=== PATIENT | female | born 1955 | race Caucasian/White ===

== ENCOUNTER 2018-03-25 12:04 | Day surgery (SDC) | payer MEDICAID ==
[~2018-03-25 12:04] MED LIST: Lactated Ringers 1,000 ML IV SCH
[2018-03-25] MEDS ORDERED: Midazolam 1 MG/ML 2 ML SDV ONE (12:24)
[2018-03-25] MEDS ORDERED: fentaNYL 100 MCG/2 ML SDV ONE (12:24)
[2018-03-25] MEDS ORDERED: Lidocaine 2% 5 ML SDV ONE (12:24)
[2018-03-25] MEDS ORDERED: Propofol 200 MG/20 ML SDV ONE ×2 (12:24→12:26)
--- NOTE | 2018-03-25 13:00 | PCM.PREANE ---
Preanesthetic Assessment - Anesthesia/Transfusion/Family Hx Anesthesia History: Prior Anesthesia Reaction (had colonoscopy with demerol versed, was not adequately sedated, sat up during procedure, felt pain) Family History of Anesthesia Reaction: No Transfusion History: No Prior Transfusion(s) - Review of Systems General: No Symptoms Pulmonary: No Symptoms Cardiovascular: No Symptoms Neurological: No Symptoms Other: Reports: None - Physical Assessment NPO Status Date: 03/24/18 O2 Sat by Pulse Oximetry: 97 Respiratory Rate: 16 Vital Signs: Last Vital Signs Temp 36.1 C 03/25/18 12:27 Pulse 62 03/25/18 12:27 Resp 16 03/25/18 12:27 BP 162/72 H 03/25/18 12:27 Pulse Ox 97 03/25/18 12:27 Height: 1.65 m Weight: 61.689 kg ASA Class: 2 Mental Status: Alert & Oriented x3 Airway Class: Mallampati = 2 Dentition: Reports: Normal Dentition ROM/Head Extension: Full Lungs: Clear to Auscultation, Normal Respiratory Effort Cardiovascular: Regular Rate, Regular Rhythm - Allergies Allergies/Adverse Reactions: Allergies Allergy/AdvReac Type Severity Reaction Status Date / Time acetaminophen [From Percocet] Allergy Cannot Verified 03/23/18 12:30 Remember codeine Allergy Cannot Verified 03/23/18 12:30 Remember hydrocodone [From Vicodin] Allergy Cannot Verified 03/23/18 12:30 Remember oxycodone [From Percocet] Allergy Cannot Verified 03/23/18 12:30 Remember - Anesthesia Plan Pre-Op Medication Ordered: None - Acknowledgements Anesthesia Type Planned: MAC Pt an Appropriate Candidate for the Planned Anesthesia: Yes Alternatives and Risks of Anesthesia Discussed w Pt/Guardian: Yes Pt/Guardian Understands and Agrees with Anesthesia Plan: Yes Additional Comments: PMH: IBS, HLD, migraine, PUD, smoker, glaucoma PreAnesthesia Questionnaire HEENT History: Reports: Allergic Rhinitis, Glaucoma Other HEENT History: uses readiong glasses Cardiovascular History: Reports: High Cholesterol Gastrointestinal History: Reports: Hiatal Hernia, Irritable Bowel Syndrome, PUD Other Gastrointestinal History: had peptic ulcers at age 4 VP COMMUNICATIONS History: Reports: Musculoskeletal History: Reports: Arthritis Other Musculoskeletal History: hx of fx right fibula, ankle and foot Neurological History: Reports: Migraines Psychiatric History: Reports: Anxiety, Panic Attack - Past Surgical History HEENT Surgical History: Reports: Adenoidectomy, Tonsillectomy GI Surgical History: Reports: Cholecystectomy, Colonoscopy, EGD Female Surgical History: Reports: Breast Biopsy, Hysterectomy, Tubal Ligation - SUBSTANCE USE Smoking Status *Q: Current Every Day Smoker Tobacco Use Within Last Twelve Months: Cigarettes Recreational Drug Use History: No - HOME MEDS Home Medications: Home Meds ALPRAZolam [Alprazolam] 0.25 mg PO TID MDD 1 mg 03/23/18 [History] Acyclovir [Zovirax] 400 mg PO DAILY 03/23/18 [History] Bromfenac Sodium [Bromsite] 1 drop EYEBOTH DAILY PRN 03/23/18 [History] Estradiol 1 mg PO DAILY 03/23/18 [History] Pravastatin [Pravachol] 40 mg PO DAILY 03/23/18 [History] Travoprost [Travatan Z 0.004% Ophth Soln] 1 drop EYEBOTH BEDTIME 03/23/18 [ History] - CURRENT (IN HOUSE) MEDS Current Meds: Current Medications Lactated Ringer's (Ringers, Lactated) 1,000 mls @ 125 mls/hr IV ASDIRECTED RENETTA Last Admin: 03/25/18 12:34 Dose: 125 mls/hr Discontinued Medications Fentanyl (Sublimaze) Confirm Administered Dose 100 mcg .ROUTE .STK-MED ONE Stop: 03/25/18 12:25 Lidocaine (Xylocaine-Mpf 2%) Confirm Administered Dose 5 ml .ROUTE .STK-MED ONE Stop: 03/25/18 12:25 Midazolam HCl (Versed 1 Mg/Ml) Confirm Administered Dose 2 mg .ROUTE .STK-MED ONE Stop: 03/25/18 12:25 Propofol (Diprivan 20 Ml) Confirm Administered Dose 200 mg .ROUTE .STK-MED ONE Stop: 03/25/18 12:25 Propofol (Diprivan 20 Ml) Confirm Administered Dose 200 mg .ROUTE .STK-MED ONE Stop: 03/25/18 12:27
[2018-03-25] MEDS ORDERED: ePHEDrine 50 MG/ML SDV ONE (14:48)
--- NOTE | 2018-03-25 14:59 | PCM.OPNOTE ---
- General Post-Op/Procedure Note Date of Surgery/Procedure: 03/25/18 Operative Procedure(s): egd w bx. colonoscopy w bx Findings: see dict [id number] Pre Op Diagnosis: BRBPR and abd pain Post-Op Diagnosis: Same Anesthesia Technique: Moderate Sedation Primary Surgeon: Faisal Hankins Pathology: egd bx random colon bx Complications: None Condition: Good
--- NOTE | 2018-03-25 15:05 | PCM.POSTAN ---
POST ANESTHESIA ASSESSMENT - MENTAL STATUS Mental Status: Oriented - RESPIRATORY Respiratory Status: Respiratory Rate WNL, Airway Patent - CARDIOVASCULAR CV Status: Pulse Rate WNL, Blood Pressure Stable - GASTROINTESTINAL GI Status: No Symptoms - POST OP HYDRATION Hydration Status: Adequate & Stable
--- NOTE | 2018-03-25 15:16 | PCM48HPAN ---
Post Anesthesia Note - EVALUATION WITHIN 48HRS OF ANESTHETIC Vital Signs in Normal Range: Yes Patient Participated in Evaluation: Yes Respiratory Function Stable: Yes Airway Patent: Yes Cardiovascular Function Stable: Yes Hydration Status Stable: Yes Pain Control Satisfactory: Yes Nausea and Vomiting Control Satisfactory: Yes Mental Status Recovered: Yes Resp Rate: 7
--- NOTE | 2018-03-28 11:56 | OR ---
SURGEON: Faisal Hankins MD DATE OF PROCEDURE: 03/25/2018 PREOPERATIVE DIAGNOSIS: Abdominal pain and bright red blood per rectum. POSTOPERATIVE DIAGNOSIS: Esophagogastroduodenoscopy diagnosis is gastritis and gastroesophageal reflux disease. Colonoscopy diagnosis is diverticulosis. PROCEDURE PERFORMED: EGD with biopsy. clonoscopy w random biopsy PROCEDURE IN DETAIL: EGD: The patient was taken to the endoscopy room, and with the MEDICAL RECORD CLERK, Diprivan was administered. A well-lubricated EGD scope was gently inserted through the oropharynx, down the esophagus, passing through the gastroesophageal junction, into the stomach. The mucosa was examined upon the passage. Any etiology will be noted. Once in the stomach, we continued to advance to the distal antrum, passed through the pylorus into the second portion of the duodenum. Again, the mucosa was examined for any abnormality and etiology. The scope was then retrieved back to the stomach and then retroflexed to look at the fundus of the stomach. If a biopsy was indicated, we will biopsy the antrum, body, and gastroesophageal junction. The air will be sucked out while the scope is retrieved to reduce the patient's discomfort. The patient tolerated the procedure well. There were no intraoperative complications. Dr. Hankins was present through the whole procedure. Prior to surgery, a time-out had been called, the patient identified, procedure identified, and antibiotic administered. COLONOSCOPY PROCEDURE: The patient was taken to the endoscopy room. A time out was called, patient identified, and procedure identified. Diprivan was then administrated. Patient went from awake to sleep, hearing doctor talking or door closing is normal. Perineum inspection and digital examination were then performed. A well-lubricated colonoscope was gently inserted through the rectum, advanced past the rectosigmoid junction, the descending colon, splenic flexure, transverse colon, hepatic flexure, ascending colon, arrived to the cecum. Cecum was identified, as dictated in the findings. Then the scope was carefully withdrawn while attention was paid to the mucosal surface for any abnormality. Air will be sucked out during the scope withdrawal. At the rectum, retroflexed to examine any rectal diseases, fistula, or hemorrhoids. During mucosal examination, picture taken and random biopsy performed. Patient tolerated procedure well. There were no intraoperative complications, and Dr. Hankins was present throughout the whole procedure. EGD FINDINGS: 1. The patient is easily sedated with MEDICAL RECORD CLERK and Diprivan. The patient is soundly snoring. 2. Oropharynx and proximal esophagus are free of disease. GE junction at 40 shows mild salmon color change, consistent with acid reflux. Stomach rugae are very flattened, totally flattened, almost none, such as chronic gastritis and chronic over-acid production. No bile, no food, and several specks of old blood. No ulcer seen. The duodenum was grossly normal. Scope retrieved back to the stomach with retroflexed look at the fundus of stomach, there was no hiatal hernia. Biopsy done at antrum, GE junction at 40 and body and sucked out the gas while scope pulling out. COLONOSCOPY FINDINGS: 1. The patient is easily sedated with MEDICAL RECORD CLERK and Diprivan. The patient is soundly snoring. 2. The patient's bowel prep is left to be desirable. Large amount of liquid stool, opaque and compromised the study and vision. There is no semi- formed stool. Colon is rather redundant in the sigmoid and requires a maneuver. Cecum indicated by ileocecal fold, one-to-one indentation, and appendiceal orifice; light emittance is not observed. The patient has moderate diverticulosis on the left colon. No signs or symptoms of diverticulitis. No polyp, mass, growth, inflammation, stricture, ulceration, or AV malformation. The patient has significant external hemorrhoids, almost to the point of a rectal prolapse, and also significant internal hemorrhoids. We will address this in the followup visit. The patient would benefit from repeat colonoscopy 10 years from today or if clinically indicated otherwise. Random biopsy was performed because of IBD concern and abdominal pain. The patient would benefit from repeat colonoscopy 10 years from today or if clinically indicated otherwise or if the biopsy indicates otherwise. CAROLINE / ESVIN /[id number] FELICIA
== END 2018-03-25 15:35 | disposition home or self-care (01) ==
LOC: MW.SDS 12:04
PROVIDERS: ATTEND Surgery
DX: K29.50 Unspecified chronic gastritis without bleeding (principal); K21.9 Gastro-esophageal reflux disease without esophagitis; K57.30 Diverticulosis of large intestine without perforation or abscess without bleeding; K64.4 Residual hemorrhoidal skin tags; K64.8 Other hemorrhoids; J30.9 Allergic rhinitis, unspecified; M19.90 Unspecified osteoarthritis, unspecified site; E78.00 Pure hypercholesterolemia, unspecified; G43.909 Migraine, unspecified, not intractable, without status migrainosus; F17.210 Nicotine dependence, cigarettes, uncomplicated; F41.9 Anxiety disorder, unspecified; Z88.5 Allergy status to narcotic agent; Z88.6 Allergy status to analgesic agent; Z90.49 Acquired absence of other specified parts of digestive tract; Z90.710 Acquired absence of both cervix and uterus; Z90.89 Acquired absence of other organs; Z98.51 Tubal ligation status
CPT/HCPCS: 43239; 45380; 88305; 88312; J2250; J3010; J7120; 00813; J2704

== ENCOUNTER 2018-08-13 09:04 | Emergency (ER) | payer MEDICARE, OTHER ==
[2018-08-13] MEDS ORDERED: Albuterol/Ipratropium 3.0-0.5 MG/3 ML Neb Soln NEB ONE (09:18)
--- NOTE | 2018-08-13 09:18 | EDM.PDOCBH ---
ED HPI GENERAL MEDICAL PROBLEM - General Stated Complaint: COUGH Time Seen by Provider: 08/13/18 09:11 Source of Information: Reports: Patient History Limitations: Reports: No Limitations - History of Present Illness INITIAL COMMENTS - FREE TEXT/NARRATIVE: History of present illness: []Patient is an admitted alcoholic who is been drinking for several days and feeling depressed secondary to her mother's failing health. Mother is currently in [place] in the hospital and she is unable to get there because she does not have a vehicle. Patient is suicidal and has no specific plan on how to kill herself but she has been drinking heavily. She thought today was Wednesday and states she has been recently falling at home secondary to intoxication. Review of systems: As per history of present illness and below otherwise all systems reviewed and negative. Past medical history: As per history of present illness and as reviewed below otherwise noncontributory. Surgical history: As per history of present illness and as reviewed below otherwise noncontributory. Social history: No reported history of drug or alcohol abuse. Family history: As per history of present illness and as reviewed below otherwise noncontributory. Physical exam: General: Well developed, well nourished in NAD HEENT: Atraumatic, normocephalic, pupils reactive, negative for conjunctival pallor or scleral icterus, mucous membranes moist, throat clear, neck supple, nontender, trachea midline. Lungs: Clear to auscultation, breath sounds equal bilaterally, chest nontender. Heart: S1S2, regular, negative for clicks, rubs, or JVD. Abdomen: Soft, nondistended, nontender. Negative for masses or hepatosplenomegaly. Negative for costovertebral tenderness. Pelvis: Stable nontender. Genitourinary: Deferred. Rectal: Deferred. Extremities: Multiple ecchymosis on left lateral thigh and left leg. negative for cords or calf pain. Neurovascular unremarkable. Neuro: Awake, alert, oriented. Cranial nerves II through XII unremarkable. Cerebellum unremarkable. Motor and sensory unremarkable throughout. Exam nonfocal. no tremors Skin:warm and dry Diagnostics: Chest x-ray, soft tissue neck, rapid strep Therapeutics: Racemic epi neb and coolness to the bedside ED Course: Unremarkable, patient refused steroids stated that she was given a steroid injection in the past and stepped off a curb and broke both ankles. Impression: Viral croup Prescriptions: Just prior to discharge patient changed her mind about prednisone and requested a prescription. Prednisone E prescribed Plan: Follow up with primary care. Coolness to bedside Definitive disposition and diagnosis as appropriate pending reevaluation and review of above. Throat Pain Score (Numeric/FACES): 9 - Related Data Allergies Allergy/AdvReac Type Severity Reaction Status Date / Time acetaminophen [From Percocet] Allergy Cannot Verified 08/13/18 09:12 Remember codeine Allergy Cannot Verified 08/13/18 09:12 Remember hydrocodone [From Vicodin] Allergy Cannot Verified 08/13/18 09:12 Remember oxycodone [From Percocet] Allergy Cannot Verified 08/13/18 09:12 Remember Home Meds: Home Meds ALPRAZolam [Alprazolam] 0.25 mg PO TID MDD 1 mg 03/23/18 [History] Acyclovir [Zovirax] 400 mg PO DAILY 03/23/18 [History] Bromfenac Sodium [Bromsite] 1 drop EYEBOTH DAILY PRN 03/23/18 [History] Estradiol 1 mg PO DAILY 03/23/18 [History] Pravastatin [Pravachol] 40 mg PO DAILY 03/23/18 [History] Travoprost [Travatan Z 0.004% Ophth Soln] 1 drop EYEBOTH BEDTIME 03/23/18 [ History] Sucralfate 1 gm PO QID 08/13/18 [History] predniSONE [Prednisone] 20 mg PO DAILY #5 tablet 08/13/18 [Rx] Past Medical History HEENT History: Reports: Allergic Rhinitis, Glaucoma Other HEENT History: uses readiong glasses Cardiovascular History: Reports: High Cholesterol Gastrointestinal History: Reports: Hiatal Hernia, Irritable Bowel Syndrome, PUD Other Gastrointestinal History: had peptic ulcers at age 4 [employer]TER UP History: Reports: Musculoskeletal History: Reports: Arthritis Other Musculoskeletal History: hx of fx right fibula, ankle and foot Neurological History: Reports: Migraines Psychiatric History: Reports: Anxiety, Panic Attack - Past Surgical History HEENT Surgical History: Reports: Adenoidectomy, Tonsillectomy GI Surgical History: Reports: Cholecystectomy, Colonoscopy, EGD Female Surgical History: Reports: Breast Biopsy, Hysterectomy, Tubal Ligation Social & Family History - Caffeine Use Caffeine Use: Reports: None ED ROS GENERAL - Review of Systems Review Of Systems: ROS reveals no pertinent complaints other than HPI. ED EXAM, BEHAVIORAL HEALTH - Physical Exam Exam: See Below (See history of present illness) COURSE, BEHAVIORAL HEALTH COMP - Course Vital Signs: Last Vital Signs Temp 98.2 F 08/13/18 09:08 Pulse 93 08/13/18 09:08 Resp 24 H 08/13/18 09:08 BP 157/69 H 08/13/18 09:08 Pulse Ox 97 08/13/18 09:08 Orders, Labs, Meds: Active Orders 24 hr Category Date Time Status RT Aerosol Therapy [RC] ASDIRECTED Care 08/13/18 09:18 Active RT Aerosol Therapy [RC] ASDIRECTED Care 08/13/18 09:24 Active Chest 2V [CR] Stat Exams 08/13/18 09:44 Taken Neck Soft Tissue [CR] Stat Exams 08/13/18 09:25 Taken CULTURE STREP A CONFIRMATION [RM] Stat Lab 08/13/18 10:49 Results STREP SCRN A RAPID W CULT CONF [RM] Stat Lab 08/13/18 10:49 Results Medications Discontinued Medications Generic Name Dose Route Start Last Admin Trade Name Deon PRN Reason Stop Dose Admin Albuterol/Ipratropium 3 ml 08/13/18 09:18 08/13/18 09:41 Duoneb 3.0-0.5 Mg/3 Ml NEB 08/13/18 09:19 Not Given ONETIME ONE Lorazepam 1 mg 08/13/18 09:55 08/13/18 10:53 Ativan PO 08/13/18 09:56 Not Given ONETIME ONE Prednisone 60 mg 08/13/18 09:24 08/13/18 10:55 Prednisone PO 08/13/18 09:25 Not Given ONETIME ONE Racepinephrine 0.5 ml 08/13/18 09:24 08/13/18 09:29 S-2 2.25% NEB 08/13/18 09:25 0.5 ml ONETIME ONE Administration Departure - Departure Time of Disposition: 10:56 Disposition: Home, Self-Care 01 Condition: Good Clinical Impression: Croup - Discharge Information *PRESCRIPTION DRUG MONITORING PROGRAM REVIEWED*: No *COPY OF PRESCRIPTION DRUG MONITORING REPORT IN PATIENT JEF: No Prescriptions: predniSONE [Prednisone] 20 mg PO DAILY #5 tablet Instructions: Croup, Pediatric, [id number] Referrals: PCP,Unknown [Primary Care Provider] - Forms: ED Department Discharge Additional Instructions: The following information is given to patients seen in the emergency department who are being discharged to home. This information is to outline your options for follow-up care. We provide all patients seen in our emergency department with a follow-up referral. The need for follow-up, as well as the timing and circumstances, are variable depending upon the specifics of your emergency department visit. If you don't have a primary care physician on staff, we will provide you with a referral. We always advise you to contact your personal physician following an emergency department visit to inform them of the circumstance of the visit and for follow-up with them and/or the need for any referrals to a consulting specialist. The emergency department will also refer you to a specialist when appropriate. This referral assures that you have the opportunity for follow-up care with a specialist. All of these measure are taken in an effort to provide you with optimal care, which includes your follow-up. Under all circumstances we always encourage you to contact your private physician who remains a resource for coordinating your care. When calling for follow-up care, please make the office aware that this follow-up is from your recent emergency room visit. If for any reason you are refused follow-up, please contact the [facility] Emergency [facility] at and asked to speak to the emergency department charge nurse. [facility] [address] [place] [id number] - My Orders Last 24 Hours: My Active Orders 08/13/18 09:18 RT Aerosol Therapy [RC] ASDIRECTED 08/13/18 09:24 RT Aerosol Therapy [RC] ASDIRECTED 08/13/18 09:25 Neck Soft Tissue [CR] Stat 08/13/18 09:44 Chest 2V [CR] Stat 08/13/18 10:49 CULTURE STREP A CONFIRMATION [RM] Stat STREP SCRN A RAPID W CULT CONF [RM] Stat - Assessment/Plan Last 24 Hours: My Active Orders 08/13/18 09:18 RT Aerosol Therapy [RC] ASDIRECTED 08/13/18 09:24 RT Aerosol Therapy [RC] ASDIRECTED 08/13/18 09:25 Neck Soft Tissue [CR] Stat 08/13/18 09:44 Chest 2V [CR] Stat 08/13/18 10:49 CULTURE STREP A CONFIRMATION [RM] Stat STREP SCRN A RAPID W CULT CONF [RM] Stat
[2018-08-13] MEDS ORDERED: Racepinephrine 2.25% 0.5 ML Neb Soln NEB ONE (09:24)
[2018-08-13] MEDS ORDERED: predniSONE 20 MG Tab PO ONE (09:24)
[2018-08-13] MEDS ORDERED: LORazepam 1 MG Tab PO ONE (09:55)
--- NOTE | 2018-08-15 09:09 | CR ---
EXAM DATE: 08/13/18 PATIENT'S AGE: 63 Patient: RAJANI NUNEZ Facility: [place], [place] Site . Site : 1955 Study: XRay ST Neck [id number]/15/2018 10:09:12 AM Ordering Physician: Boy Mann Final Report: Indication: Croup Technique: Two view radiographic exam of the soft tissues of the neck Comparison: None Findings: All the epiglottic and subglottic soft tissues appear normal. No adenoidal or tonsillar enlargement is seen. No foreign body is seen. On the anterior view there is the Steeple sign appearance of the subglottic trachea compatible with underlying croup. Impression: 1. Subglottic tracheal edema/narrowing is compatible with croup. 2. No evidence for epiglottitis or other abnormality. Dictated by Meng Calvo MD @ Aug 13 2018 10:23AM (Electronic Signature) Report Signed by Proxy. FELICIA
--- NOTE | 2018-08-15 09:14 | CR ---
EXAM DATE: 08/13/18 PATIENT'S AGE: 63 Patient: RAJANI NUNEZ Facility: [place], [place] Site . Site : 1955 Study: XRay Chest [id number]/15/2018 10:09:33 AM Ordering Physician: Boy Mann Final Report: INDICATION: pain/sob 2 View Chest. Findings: The lungs are clear. Pulmonary vascularity, mediastinum and cardiac silhouette are within normal limits. No effusions and no pneumothorax. Osseous structures appear unremarkable. Mild mid thoracic dextroscolosis. Impression: No evidence of acute cardiopulmonary disease. Dictated by: Ronni Patel MD @ 08/13/2018 10:25:43 (Electronic Signature) Report Signed by Proxy. FELICIA
== END 2018-08-13 11:25 | disposition home or self-care (01) ==
LOC: MW.ED 09:04
DX: J05.0 Acute obstructive laryngitis [croup] (principal); B97.89 Other viral agents as the cause of diseases classified elsewhere; E78.00 Pure hypercholesterolemia, unspecified; Z88.8 Allergy status to other drugs, medicaments and biological substances; Z88.5 Allergy status to narcotic agent; Z79.899 Other long term (current) drug therapy
CPT/HCPCS: 70360; 70360-26; 71046; 71046-26; 87081; 87880-QW; 94640; 99283